=== PATIENT | female | born 1995 | race Caucasian/White ===

== ENCOUNTER 2019-06-19 06:48 | Emergency (ER) | payer OTHER ==
[~2019-06-19] VITALS: Ht 165.1 cm; Wt 90.3 kg
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
[2019-06-19 07:23] LABS: BASOPHILS # (AUTO) 0.1 /CMM (0.0-0.2); BASOPHILS % (AUTO) 1.8 % (0.0-2.0); EOSINOPHILS % (AUTO) 2.6 % (0.0-6.0); HEMATOCRIT 40 % (33-45); HEMOGLOBIN 13.8 g/dL (11.5-14.8); LYMPHOCYTES # (AUTO) 0.5 /CMM (0.8-4.8); LYMPHOCYTES % (AUTO) 6.1 % (20.0-44.0); MEAN CORPUSCULAR HGB CONC 34 g/dl (31.0-36.0); MEAN CORPUSCULAR VOLUME 87 fL (82-100); MONOCYTES # (AUTO) 0.3 /CMM (0.1-1.30); MONOCYTES % (AUTO) 3.9 % (2.0-12.0); NEUTROPHILS # (AUTO) 6.7 /CMM (1.8-8.9); NEUTROPHILS % (AUTO) 85.6 % (43.0-81.0); PLATELET COUNT (AUTO) 282 /CMM (150-450); RED BLOOD CELL COUNT(AUTO) 4.66 MIL/uL (4.0-5.2); WHITE BLOOD COUNT (AUTO) 7.8 K/uL (4.3-11.0)
[2019-06-19] MEDS ORDERED: OLANZAPINE 5 MG TABLET PO ONE (07:30)
[2019-06-19 07:37] LABS: ALBUMIN 3.8 g/dL (3.4-5.0); BILIRUBIN,DIRECT 0.1 mg/dL (0.0-0.2); BILIRUBIN,TOTAL 0.3 mg/dL (0.2-1.0); CALCIUM, SERUM 8.3 mg/dL (8.5-10.1); CREATININE 0.9 mg/dL (0.6-1.3); POTASSIUM 3.5 mmol/L (3.5-5.1); TOTAL PROTEIN, SERUM 7.8 g/dL (6.4-8.2)
[2019-06-19 07:39] LABS: SALICYLATE 1.1 mg/dL (2.8-20.0)
[2019-06-19 08:03] LABS: APPEARANCE,URINE Turbid (CLEAR); BILIRUBIN,URINE Negative (NEGATIVE); BLOOD, URINE Trace-lysed Ery/uL (NEGATIVE); COLOR,URINE Yellow (YELLOW); KETONES,URINE Trace (NEGATIVE); LEUKOCYTE ESTERASE ,URINE Moderate (NEGATIVE); NITRITE, URINE Negative (NEGATIVE); PROTEIN,URINE 30 mg/dl (NEGATIVE); UGLUCOSE Negative (NEGATIVE); UROBILINOGEN,URINE 0.2 EU/dL (0.2)
[2019-06-19] MEDS ORDERED: OLANZAPINE 5 MG TABLET ONE (08:05)
[2019-06-19 08:11] LABS: BACTERIA,URINE Many /HPF (None Seen); RBC,URINE 0-2 /HPF (0-2); SQUAMOUS EPITHELIAL CELL,UR Few /HPF (None Seen)
--- NOTE | 2019-06-19 10:18 | NUR ---
patient in bed, asleep, in no distress, sitter at bedside for constant monitoring.
--- NOTE | 2019-06-19 11:24 | NUR ---
SPOKE TO ISAURA OF [facility]. PATIENT WILL BE PLACED ON THEIR LIST AND SEND PET CLINICIAN, СЕРГЕЙ ETA. MAY WILL CALL BACK FOR ETA. DIRECT CALL BACK NUMBER: [phone]
--- NOTE | 2019-06-19 12:05 | NUR ---
MOTHER: MARK [phone]
--- NOTE | 2019-06-19 12:47 | NUR ---
[facility] called. spoke to srinath. no pet team available. states we can use our own psych clinician to evaluate. pt.
--- NOTE | 2019-06-19 13:46 | NUR ---
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
--- NOTE | 2019-06-19 16:23 | NUR ---
[facility] CALLED SAURAV [facility] IN [facility]. [phone] ADMITTING MD IS IKE ETA IS 60 MINS
--- NOTE | 2019-06-19 16:26 | NUR ---
[facility] WILL TRANSPORT
--- NOTE | 2019-06-19 16:43 | NUR ---
REPORT GIVEN TO ABBY OF [facility] DEPT
[2019-06-19 17:20] VITALS: BP 125/88
--- NOTE | 2019-06-19 17:28 | NUR ---
PICKED UP BY [facility] IN STABLE CONDITION. VSS AND RECORDED. MOTHER AT BEDSIDE. ALL BELONGINGS GIVEN TO PATIENT. PATIENT WILL BE BROUGHT TO [facility].
== END 2019-06-19 17:31 ==
LOC: ER 06:50
DX: F28 Other psychotic disorder not due to a substance or known physiological condition (principal)
CPT/HCPCS: 36415; 80048; 80076; 80305; 80307; 80329; 81001; 84703; 85025; 87086; 99285; G0480; 81000-TC